=== PATIENT | male | born 1940 ===

== ENCOUNTER 2017-11-15 16:28 | Outpatient (CLI) | payer OTHER | END 2017-11-15 17:00 | disposition home or self-care (01) | LOC: RAD 16:28 | DX: I10 Essential (primary) hypertension (principal); Z80.42 Family history of malignant neoplasm of prostate; D68.8 Other specified coagulation defects; M50.00 Cervical disc disorder with myelopathy, unspecified cervical region; Z72.0 Tobacco use ==